=== PATIENT | male | born 1995 ===

== ENCOUNTER 2018-10-05 21:38 | Emergency (ER) | payer SELFPAY ==
[2018-10-05 21:43] VITALS: BP 129/84; PULSE 101; RESP 16; TEMP 98.4; O2SAT 97
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
== END 2018-10-06 00:28 | disposition home or self-care (01) ==
LOC: C.ER 21:38
DX: S01.81XA Laceration without foreign body of other part of head, initial encounter (principal); S00.12XA Contusion of left eyelid and periocular area, initial encounter; Y04.0XXA Assault by unarmed brawl or fight, initial encounter